=== PATIENT | male | born 1995 | race Hispanic/Latino ===

== ENCOUNTER 2017-07-26 09:23 | Inpatient (IN) | payer BC, OTHER ==
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
[2017-07-26] MEDS ORDERED: Magnesium Hydroxide Susp 30 ml UD PO PRN (10:52)
[2017-07-26] MEDS ORDERED: Alum-Mag Hydrox-Simethicone Susp (30 mL) PO PRN (10:52)
--- NOTE | 2017-07-26 10:59 | PCM.BM ---
<Luke Devries - Last Filed: 07/26/17 10:56> Treatment Plan Problems - Problems identified on initial assessmt Suicidal Ideation Date Initiated: 07/26/17 Time Initiated: 10:57 Assessment reference: NA Status: Active Priority: 1 Hopelessness Date Initiated: 07/26/17 Time Initiated: 10:57 Assessment reference: NA Status: Active Priority: 2 Worthlessness Date Initiated: 07/26/17 Time Initiated: 10:57 Assessment reference: NA Status: Active Priority: 3 Treatment assets and liabiliti Patient Assests: cooperative, physically healthy, good support system, negotiates basic needs, cognitively intact Patient Liabilities: legal issue - Milieu Protocol Maintain good personal hygiene: daily Encourage regular showers Maintain personal safety: every shift Educate patient to report safety concerns to staff, every shift Monitor environment for contraband/sharps Medication safety: Monitor for expected outcome, potential side effects: every shift, Assess barriers to learning: every shift, Assess readiness for medication education: every shift Family Contact - Goals for Treatment Patient goals for treatment: "I want to become a happier person" Discharge/Continuing Care - Education Needs Education Needs: Patient Medication, Patient Diagnosis/Disease Process, Patient Coping Skills, Patient Aftercare Safety Plan - Discharge Discharge Criteria: Tolerates medication w/o severe side effects, Free of Suicidal thoughts, Normal sleep pattern <Kristin Zapien - Last Filed: 07/26/17 18:07> - Diagnosis (1) Bipolar II disorder Status: Acute Interventions: 07/26/17 18:07 Psychoeducation Psychopharmacology/adjustment of medications as needed/ monitoring possible side effects Monitor blood level of mood stabilizers Evaluate pt on daily basis Compliance with medications and follow up appointments Suicide and homicide risk assessment and prevention, coping strategies, safety plan Relapse prevention Reduction of symptoms Improve functional status Family involvement As outpatient: cognitive behavioral therapy <Paola Oro - Last Filed: 07/27/17 08:48> Family Contact Family contact: Patient agrees to contact
[2017-07-26 11:11] VITALS: BMI 22.4
[2017-07-26 12:55] LABS: CHOLESTEROL 166 mg/dL (130-200); GLUCOSE,FASTING 86 mg/dL (65-110)
[2017-07-26 13:17] LABS: FREE T4 0.91 ng/dL (0.78-2.19)
[2017-07-26 13:31] LABS: THYROID STIMULATING HORMONE 1.11 mIU/mL (0.46-4.68)
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
[2017-07-28 07:43] LABS: BASO # 0.03 K/mm3 (0.0-2.0); BASO % 0.5 % (0.0-3.0); EOS # 0.4 (0.0-0.7); EOS % 6.1 % (1.5-5.0); GRAN # 2.9 (1.4-6.5); GRAN % 47.9 % (50.0-68.0); HEMATOCRIT 42.2 % (42.0-52.0); LYMPH # 1.9 (1.2-3.4); LYMPH % 31.8 % (22.0-35.0); MEAN CELL VOLUME 89.2 fl (80.0-105.0); MEAN CORPUSCULAR HEMOGLOBIN 31.5 pg (25.0-35.0); MEAN CORPUSCULAR HGB CONC 35.3 g/dl (31.0-37.0); MEAN PLATELET VOLUME 9.7 fl (7.0-11.0); MONO # 0.8 (0.1-0.6); MONO % 13.7 % (1.0-6.0); RED CELL DISTRIBUTION WIDTH 12.1 % (11.5-14.5); WHITE BLOOD COUNT 6.1 10^3/ul (4.5-11.0)
[2017-07-28 08:20] LABS: ALB/GLOB RATIO 1.6 (1.1-1.8); ALKALINE PHOSPHATASE 80 U/L (38-126); ALT/SGPT 33 U/L (7-56); AST/SGOT 25 U/L (17-59); BILIRUBIN,TOTAL 0.6 mg/dL (0.2-1.3); BLOOD UREA NITROGEN 23 mg/dL (7-21); CALCIUM 9.2 mg/dL (8.4-10.5); CARBON DIOXIDE 30 mmol/L (21-33); CHLORIDE 102 mmol/L (98-107); GFR AFRICAN-AMERICAN > 60; GLUCOSE,RANDOM 94 mg/dL (70-110); POTASSIUM 4.2 mmol/L (3.6-5.0); SODIUM 142 mmol/L (132-148); TOTAL PROTEIN 6.8 g/dL (5.8-8.3)
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
[2017-07-29 08:08] VITALS: TEMP 97.8
[2017-07-29] MEDS ORDERED: buPROPion 150 mg/24 Hours XL Tab PO SCH (09:53)
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
[2017-07-30 06:51] VITALS: BP 127/52; PULSE 76; RESP 20; O2SAT 99
[2017-07-30] MEDS ORDERED: buPROPion 150 mg/24 Hours XL Tab PO SCH (08:00)
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
== END 2017-07-30 13:59 | disposition home or self-care (01) | DRG 885 ==
LOC: ED 09:23 → PSYC 10:04 → ERH 10:26 → PSYC 10:39
PROVIDERS: ADMIT Psychiatry & Neurology Psychiatry; ATTEND Psychiatry & Neurology Psychiatry
PROC: GZ3ZZZZ Medication Management (ICD-10-PCS; principal; 2017-07-26)
DX: F31.81 Bipolar II disorder (principal); R45.851 Suicidal ideations; F10.10 Alcohol abuse, uncomplicated; F17.210 Nicotine dependence, cigarettes, uncomplicated; T63.442 Toxic effect of venom of bees, intentional self-harm; Y92.89 Other specified places as the place of occurrence of the external cause; Z81.8 Family history of other mental and behavioral disorders